=== PATIENT | female | born 1950 | race African-American/Black ===

== ENCOUNTER 2022-07-31 14:50 | Emergency (ER) | payer MEDICARE, MEDICAID ==
[~2022-07-31] VITALS: Ht 167.6 cm; Wt 82.0 kg
[2022-07-31 15:50] LABS: BASOPHILS % 0.7 % (0.0-2.0); HEMATOCRIT. 41.8 % (36.0-48.0); HEMOGLOBIN. 13.9 g/dL (12.0-16.0); LYMPHOCYTES % 32.4 % (20.0-50.0); MEAN CORPUSCULAR HEMOGLOBIN 26.8 pg (28.0-32.0); MEAN CORPUSCULAR VOLUME 80.9 fL (81.0-99.0); MEAN PLATELET VOLUME 7.8 fl (7.4-10.4); MONOCYTES % 9.4 % (2.0-8.0); NEUTROPHILS % 53.5 % (40.0-76.0); PLATELET 234 x1000/uL (130-400); RED BLOOD CELL COUNT 5.17 mill/uL (4.2-5.4); RED CELL DISTRIBUTION WIDTH 13.8 % (11.6-14.6)
[2022-07-31 15:59] LABS: CHLORIDE 108 mEq/L (98-107)
[2022-07-31 18:00] VITALS: BP 133/70
[2022-07-31] MEDS ORDERED: LIDO700A15 TP (19:24)
[2022-07-31] MEDS ORDERED: ACET-2708 MT (19:24)
== END 2022-07-31 19:35 | disposition home or self-care (01) ==
LOC: ER 14:50
DX: R55 Syncope and collapse (principal); R53.1 Weakness; M54.50 Low back pain, unspecified; I10 Essential (primary) hypertension; W19.XXXA Unspecified fall, initial encounter; Y93.89 Activity, other specified; Y92.89 Other specified places as the place of occurrence of the external cause; Y99.8 Other external cause status
CPT/HCPCS: 36415; 71045; 72131; 80053; 83605; 83880; 84484; 85025; 93005; 99285